=== PATIENT | male | born 1995 | race Two or more races ===

== ENCOUNTER 2024-07-06 15:16 | Emergency (ER) | payer OTHER ==
[~2024-07-06] VITALS: Ht 172.7 cm; Wt 73.0 kg
[2024-07-06 15:21] VITALS: BP 118/51; PULSE 76; RESP 18; TEMP 98.6; O2SAT 99
== END 2024-07-06 17:51 ==
LOC: ER 15:16
DX: S61.211A Laceration without foreign body of left index finger without damage to nail, initial encounter (principal); W25.XXXA Contact with sharp glass, initial encounter; Y93.89 Activity, other specified; Y92.89 Other specified places as the place of occurrence of the external cause; Y99.8 Other external cause status
CPT/HCPCS: 12001; 99283